=== PATIENT | male | born 1975 | race Two or more races ===

== ENCOUNTER 2017-04-09 11:31 | Emergency (ER) | payer OTHER ==
[~2017-04-09] VITALS: Ht 172.7 cm; Wt 93.0 kg
--- NOTE | 2017-04-09 11:31 | NUR ---
SEE CODE BLUE SHEET; PRONOUNCED BY DR. PATRICIO AT 1130 AM
--- NOTE | 2017-04-09 13:12 | NUR ---
, KHRIS, APPROACHED TO ASK HER IF SHE WANTS TO SEE HER BEFORE WE TRANSFER HIM TO THE [facility] [place], SHE REPLIED, AND SAID THAT SHE DOESN'T WANT TO SEE HIM. DR PATRICIO AWARE.
--- NOTE | 2017-04-09 13:17 | NUR ---
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
--- NOTE | 2017-04-09 13:37 | NUR ---
PT'S BODY TRANSFERRED TO THE [facility] [place].
[2017-04-09 13:39] VITALS: BP 0/0
--- NOTE | 2017-04-09 14:10 | NUR ---
RECEIVED A CALL FROM [facility] AND SPOKE TO CRISSY, NEEDED INFORMATION PROVIDED.
--- NOTE | 2017-04-09 14:37 | NUR ---
CALLED [facility] AT [phone], SPOKE WITH SERVICE CENTER ASSISTANT, SAID OFFICERS ARE STILL ON SCENE AND THAT IS WHY THEY HAVE NOT COME HERE YET
== END 2017-04-09 13:39 | disposition expired ==
LOC: EDBD 12:40 → ER 12:40
DX: I46.9 Cardiac arrest, cause unspecified (principal); V98.8XXA Other specified transport accidents, initial encounter; Y93.89 Activity, other specified; Y92.413 State road as the place of occurrence of the external cause; Y99.8 Other external cause status
CPT/HCPCS: A4606; Z7610